=== PATIENT | female | born 1990 ===

== ENCOUNTER 2020-08-06 02:24 | Inpatient (IN) | payer SELFPAY ==
[2020-08-06] MEDS ORDERED: LACTATED RINGERS 1,000 ML ONE (02:54)
[2020-08-06] MEDS ORDERED: OXYTOCIN DRIP 30,000 MILLIUNITS/500 ML BAG IV ONE ×2 (02:54→03:16)
[2020-08-06] MEDS ORDERED: LIDOCAINE (2%) 20 MG/1 ML VIAL 20 ML MDV INFILTRATI ONE ×3 (03:16→03:52)
[2020-08-06] MEDS ORDERED: MINERAL OIL 30 ML ORAL LIQD ONE (03:16)
[2020-08-06] MEDS ORDERED: ePHEDrine SULFATE 50 MG/1 ML INJ IV PRN ×2 (03:22→03:52)
[2020-08-06] MEDS ORDERED: MINERAL OIL 30 ML ORAL LIQD PO PRN ×2 (03:22→03:52)
[2020-08-06] MEDS ORDERED: TERBUTALINE 1 MG/1 ML INJ SUB-Q PRN ×2 (03:22→03:52)
--- NOTE | 2020-08-06 03:46 | History and Physical Report ---
History of Present Illness Date of examination: 08/06/20 Chief complaint: Intense labor pains History of present illness: Early entry to care at 9 2/7 weeks to [facility]. course complicated by anemia. Past History Past Medical History: no pertinent history Past Surgical History: other (left partial salpingectomy following ectopic 2017) Family/Genetic History: diabetes (paternal grandmother) Social history: no significant social history - Obstetrical History Expected Date of Delivery: 08/03/20 Actual Gestation: 40 Week(s) 3 Day(s) : 4 Para: 2 Number of Living Children: 2 #1 Gender: Male year: 2,[birth year] Birthweight: 3.714 kg Method of Delivery: Vaginal Gestational age at delivery: 40 Complications: none #2 Gender: Male year: 2,[birth year] Birthweight: 3.657 kg Method of Delivery: Vaginal Gestational age at delivery: 40 Complications: none Medications and Allergies Allergies Allergy/AdvReac Type Severity Reaction Status Date / Time No Known Allergies Allergy Verified 10/12/16 14:36 Home Medications Medication Instructions Recorded Confirmed Last Taken Type HYDROcodone/APAP 5-325 [[place] 1 each PO Q6HR PRN #30 tablet 10/12/16 Unknown Rx 5/325] Review of Systems All systems: negative - Physical Exam Breasts: Positive: normal Cardiovascular: Regular rate Lungs: Positive: Clear to auscultation, Normal air movement Abdomen: Positive: normal appearance, soft Genitourinary (Female): Positive: normal external genitalia, normal perenium Vagina: Positive: normal moisture Uterus: Positive: enlarged Anus/Rectum: Positive: normal perianal skin Extremities: Positive: normal - Obstetrical FHR: category 1 Uterine Contraction Monitor Mode: External Cervical Dilatation: 10 (Bulging bag of water palpated. Large amount of thin green meconium stained fluid upon AROM at 0320) Cervical Effacement Percentage: 100 station: 0 Uterine Contraction Frequency (min): 2 Uterine Contraction Duration: 60 Uterine Contraction Pattern: Regular Uterine Tone Measurement Phase: Resting Uterine Contraction Intensity: Moderate Results All other labs normal. Assessment and Plan A: IUP at 40 3/7 weeks Category I tracing Active Labor GBS Negative P: Admit to L&D per routine orders AROM Anticipate
[2020-08-06] MEDS ORDERED: LACTATED RINGERS 1,000 ML IV SCH (04:00)
[2020-08-06] MEDS ORDERED: OXYTOCIN DRIP 30 UNITS/500 ML BAG IV SCH ×4 (04:00)
[2020-08-06 04:03] LABS: Hematocrit 37.4 % (30.3-42.9); Hemoglobin 12.2 gm/dl (10.1-14.3); Mean Corpuscular HGB Conc 33 % (30-34); Mean Corpuscular Volume 83 fl (79-97); Platelet Count 338 K/mm3 (140-440); Red Blood Count 4.49 M/mm3 (3.65-5.03); Red Cell Distribution Width 16.8 % (13.2-15.2)
--- NOTE | 2020-08-06 04:22 | Procedure Note ---
OB Delivery Note - Delivery Date of Delivery: 08/06/20 (0322) Surgeon: MENDOZA JEAN Estimated blood loss: 100cc - Vaginal Delivery presentation: vertex Delivery position: OA Intrapartum events: meconium Delivery induction: none Delivery augmentation: rupture of membranes Delivery monitor: external FHT, external uterine Route of delivery: Delivery placenta: spontaneous Delivery cord: 3 umbilical vessels Episiotomy: none Delivery laceration: none Anesthesia: none Delivery comments: of a live 7'12 female with Apgars of 8 and 9 over an intact perineum under IV pain control at 0322 on 08/06/2020. Lusty spontaneous cry at delivery. stimulated and placed on maternal abd/chest, skin to skin contact. Delay ed cord clamping; cord double clamped and cut by father of baby. Spontaneous delivery of placenta complete and intact with [place] side presenting at 0328. Fundus is firm and midline, located 4 below the U. Lochia is scant. Cord blood collected. Placenta to be discarded. - Infant A at 1 minute: 8 at 5 minutes: 9 Infant Gender: Female (7'12)
[2020-08-06] MEDS ORDERED: oxyCODONE /ACETAMINOPHEN 5-325MG TAB PO PRN (04:24)
[2020-08-06] MEDS ORDERED: WITCH HAZEL/ GLYCERIN PAD TP PRN (04:24)
[2020-08-06] MEDS ORDERED: MAGNESIUM HYDROXIDE (MOM) ORAL LIQD UDC PO PRN (04:24)
[2020-08-06] MEDS ORDERED: LANOLIN/ZINC/DIMETHICONE (LANSINOH) 7 GM TP PRN (04:24)
[2020-08-06] MEDS ORDERED: diphenhydrAMINE 25 MG CAP PO PRN (04:24)
[2020-08-06 16:18] LABS: Hematocrit 30.1 % (30.3-42.9); Hemoglobin 10.1 gm/dl (10.1-14.3)
[2020-08-06] MEDS: IBUPROFEN 600 MG TAB PO SCH ×2 (17:33→23:41)
[2020-08-07] MEDS: IBUPROFEN 600 MG TAB PO SCH ×2 (06:31→12:26)
[2020-08-07 09:12] VITALS: BP 95/62
--- NOTE | 2020-08-07 12:05 | Discharge Summary ---
Providers - Providers Date of Admission: 08/06/20 03:53 Date of discharge: 08/07/20 Attending physician: NIKO FRAIRE Primary care physician: NIKO FRAIRE Hospitalization Reason for admission: active labor Delivery: Episiotomy: none Laceration: none Other procedures: none complications: none Discharge diagnosis: IUP at term delivered baby: female Hospital course: See admission H&P; OB delivery summary and PP progress notes Condition at discharge: Good Disposition: DC-01 TO HOME OR SELFCARE - Discharge Diagnoses (1) Status post normal vaginal delivery Status: Acute (2) Anemia Status: Acute Qualifiers: Anemia type: other cause Other causes of anemia: acute posthemorrhagic Qualified Code(s): D62 - Acute posthemorrhagic anemia Comment: Asymptomatic Plan - Provider Discharge Summary Activity: routine, no sex for 6 weeks, no heavy lifting 4 weeks, no strenuous exercise Diet: other (Iron rich diet) Instructions: routine Additional instructions: [] Smoking cessation referral if applicable(refer to patient education folder for contact #) [] Refer to [facility] Call your doctor immediately for: * Fever > 100.5 * Heavy vaginal bleeding ( >1 pad per hour) * Severe persistent headache * Shortness of breath * Reddened, hot, painful area to leg or breast * Drainage or odor from incision. * Keep incision clean and dry at all times and follow doctor's instructions regarding bathing/showering - Follow up plan Follow up: NIKO FRAIRE MD [Primary Care Provider] - 6 Weeks
== END 2020-08-07 16:00 | disposition home or self-care (01) | DRG 806 ==
LOC: TRG 02:24 → APU 02:25 → LD 03:19 → TRG 03:52 → LD 03:53 → OB 05:36
PROVIDERS: ADMIT Obstetrics & Gynecology; ATTEND Obstetrics & Gynecology
PROC: 10E0XZZ Delivery of Products of Conception, External Approach (ICD-10-PCS; principal; 2020-08-06)
PROC: 10907ZC Drainage of Amniotic Fluid, Therapeutic from Products of Conception, Via Natural or Artificial Opening (ICD-10-PCS; 2020-08-06)
DX: O77.0 Labor and delivery complicated by meconium in amniotic fluid (principal); D62 Acute posthemorrhagic anemia; Z37.0 Single live birth; O99.02 Anemia complicating childbirth; Z3A.40 40 weeks gestation of pregnancy; Z20.822 Contact with and (suspected) exposure to COVID-19; Z90.721 Acquired absence of ovaries, unilateral; Z83.3 Family history of diabetes mellitus; Z79.899 Other long term (current) drug therapy
CPT/HCPCS: 36415; 85014; 85018; 85027; 86592; 86850; 86900; 86901; G0378; U0003